=== PATIENT | male | born 1995 | race Caucasian/White ===

== ENCOUNTER 2016-03-31 23:38 | Emergency (ER) | payer BC, MEDICAID ==
[2016-03-31] MEDS ORDERED: ALPRAZOLAM 0.25 MG TABLET PO ONE (23:49)
--- NOTE | 2016-03-31 23:55 | Emergency Department Record ---
Anxiety - General Chief Complaint: Panic attack Stated Complaint: ANXIETY ATTACK Time Seen by Provider: 03/31/16 23:48 Source: Patient, Family Mode of Arrival: Ambulatory Limitations: No limitations - History of Present Illness Initial Comments: 20 yo male presents after feeling significant anxiety today. He states most things or everything causes stress at this time. He most recently was forced to move out of his brothers house because his brother's girlfriend is . This abrupt change was too much for him to think about today. He does not have a family doctor. The last time he was under care of a PCP was about a year ago. He was on medication for depression then but it caused a rash ( fluoxetine). He passed out during the stressful anxiety attack. No injury. He has history of passing out several times in the past. He has seen several cardiologists in the past but reports no specific cause has been found. He was told his sleep apnea was a contribution. He was seen and admitted at [facility] about one month ago hitting his head after passing out. MD Complaint: Anxiety, Heart racing, Shortness of breath, Other -: Hour(s) Symptoms: Chest pain, Dyspnea, Extremity numbness/tingling, Muscle cramps, Palpitations Place: Home Previous History of Same: Yes Severity: Severe Quality: Improving, Similar to prior episodes Provoking factors: Emotional stress Worsens With: Thinking about event - Related Data Home Medications: Home Medications Medication Instructions Recorded Confirmed Last Taken No Home Med [NO HOME MEDS] 01/21/15 01/21/15 Unknown Allergies/Adverse Reactions: Allergies Allergy/AdvReac Type Severity Reaction Status Date / Time No Known Drug Allergies Allergy Verified 01/21/15 17:54 Review of Systems Constitutional: Denies: Chills, Fever, Malaise, Night sweats, Weakness Eyes: Denies: Eye discharge, Eye pain, Photophobia, Vision change ENT: Denies: Congestion, Ear pain, Epistaxis, Throat pain Respiratory: Denies: Cough, Dyspnea, Hemoptysis Cardiovascular: Reports: Chest pain, Palpitations. Denies: Arrhythmia, Syncope Endocrine: Denies: Fatigue, Polydipsia, Polyuria Gastrointestinal: Denies: Abdominal pain, Diarrhea, Nausea, Vomiting Genitourinary: Denies: Dysuria, Frequency, Hematuria Musculoskeletal: Denies: Arthralgia, Back pain, Myalgia Skin: Denies: Bruising, Change in color, Rash Neurological: Reports: Numbness, Tingling. Denies: Confusion, Headache Psychiatric: Reports: Anxiety Hematological/Lymphatic: Denies: Blood Clots, Easy bleeding, Easy bruising, Swollen glands Past Medical History - SOCIAL HISTORY Smoking Status: Current every day smoker - RESPIRATORY Hx Respiratory Disorders: Yes Hx Sleep Apnea: Yes - CARDIOVASCULAR Hx Cardio Disorders: No - NEURO Hx Neuro Disorders: No - GI Hx GI Disorders: No - Hx Genitourinary Disorders: No - ENDOCRINE Hx Endocrine Disorders: No Comment:: hypoglycemia - MUSCULOSKELETAL Hx Musculoskeletal Disorders: No - PSYCH Hx Psych Problems: No - HEMATOLOGY/ONCOLOGY Hx Hematology/Oncology Disorders: No Physical Exam - General General Appearance: Alert, Oriented x3, Cooperative, No acute distress Limitations: No limitations - Head Head exam: Normal inspection - Eye Eye exam: Normal appearance, PERRL - ENT ENT exam: Normal exam, Mucous membranes moist, Normal external ear exam, Normal orophraynx Ear exam: Normal external inspection. negative: External canal tenderness Nasal Exam: Normal inspection. negative: Discharge, Sinus tenderness Mouth exam: Normal external inspection, Tongue normal Teeth exam: Normal inspection. negative: Dental caries Throat exam: Normal inspection. negative: Tonsillar erythema, Tonsillar exudate - Neck Neck exam: Normal inspection, Full ROM. negative: Tenderness - Respiratory Respiratory exam: Normal lung sounds bilaterally. negative: Respiratory distress - Cardiovascular Cardiovascular Exam: Regular rate, Normal rhythm, Normal heart sounds Peripheral Pulses: 2+: Radial (R), Radial (L) - GI/Abdominal GI/Abdominal exam: Soft. negative: Tenderness - Rectal Rectal exam: Deferred - exam: Deferred - Extremities Extremities exam: Normal inspection, Full ROM, Normal capillary refill. negative: Tenderness - Back Back exam: Reports: Normal inspection, Full ROM. Denies: Muscle spasm, Rash noted, Tenderness - Neurological Neurological exam: Alert, Normal gait, Oriented X3, Reflexes normal - Psychiatric Psychiatric exam: Normal affect, Normal mood. negative: Agitated, Anxious, Depressed, Manic, Suicidal ideation - Skin Skin exam: Dry, Intact, Normal color, Warm. negative: Cyanosis, Diaphoretic, Erythema Course - Reevaluation(s) Reevaluation #1: The patient is calm at the time of examination with improvement of symptoms 03/31/16 23:51 Reevaluation #2: EKG NSR, rate 82, intervals normal, axis normal, rsr' noted, no acute ST changes No changes from previous EKG 03/31/16 23:59 04/01/16 00:01 Reevaluation #3: The patient was admitted last month at [facility] for syncope. Records requested. 04/01/16 01:01 Reevaluation #4: I offered admission for a cardiology consultation on 04/01/16 The patient not will to be admitted and requests outpatient follow up given he has seen cardiologists in the past but does not follow with anyone currently A consult will be place for Dr Blackman clinic 04/01 as this is next available 04/01/16 01:26 Medical Decision Making - Lab Data Result diagrams: 03/31/16 00:04 03/31/16 00:04 Disposition Disposition: Discharge Clinical Impression: Anxiety Syncope Qualifiers: Syncope type: unspecified Qualified Code(s): R55 - Syncope and collapse Disposition: Home, Self-Care Condition: (1) Good Instructions: Anxiety (ED), Syncope (ED) Additional Instructions: You are being referred the [facility] You will be called with an appointment time Referrals: NIKITA BLACKMAN M.D. [MEDICAL DOCTOR] - [facility] [Provider Group] Forms: Patient Portal Access Time of Disposition: 01:28
[2016-04-01 00:20] LABS: BASO % 0.5 % (0-6); EOS % 3.2 % (0-6); GRAN % 55.2 % (47-80); HEMATOCRIT 47.3 % (42.0-52.0); HEMOGLOBIN 16.4 gm/dl (14.0-18.0); MEAN CELL VOLUME 79.1 fl (81-97); MEAN CORPUSCULAR HEMOGLOBIN 27.4 pg (27-33); MEAN CORPUSCULAR HGB CONC 34.7 g/dl (32-36); MEAN PLATELET VOLUME 11.4 fl (7.4-10.4); MONO % 11.1 % (0-9); PLATELET COUNT 234 K/uL (130-400); RED BLOOD COUNT 5.98 M/uL (4.40-5.70); RED CELL DISTRIBUTION WIDTH 13.6 % (11.5-14.5)
[2016-04-01 00:30] LABS: ANION GAP 14.1 (7-16); BLOOD UREA NITROGEN 14 mg/dL (9-20); CARBON DIOXIDE 21.9 mmol/L (22-30); CREATININE 0.9 mg/dL (0.66-1.25); GLUCOSE,RANDOM 108 mg/dL (70-110)
[2016-04-01] MEDS ORDERED: POTASSIUM CHLORIDE 20 MEQ TABLET PO ONE (01:00)
== END 2016-04-01 01:43 | disposition home or self-care (01) ==
LOC: ER 23:38
DX: F41.1 Generalized anxiety disorder (principal); F43.0 Acute stress reaction; R55 Syncope and collapse; R06.02 Shortness of breath; R51 Headache; R07.89 Other chest pain; R25.2 Cramp and spasm
CPT/HCPCS: 80048; 83735; 85025; 93005; 93010; 99284